=== PATIENT | male | born 1985 | race Caucasian/White ===

== ENCOUNTER 2022-06-19 22:14 | Emergency (ER) | payer MEDICAID, OTHER ==
[~2022-06-19] VITALS: Ht 175.3 cm; Wt 77.8 kg
[2022-06-20] MEDS ORDERED: QUET50TA4 PO (03:57)
[2022-06-20] MEDS ORDERED: DOXA1TAB40 PO (03:57)
[2022-06-20] MEDS ORDERED: BUPR1FIL PO (03:57)
[2022-06-20] MEDS ORDERED: TRAZ1TAB14 PO (03:57)
[2022-06-20] MEDS ORDERED: NICO1DIS11 TD (03:57)
[2022-06-20] MEDS ORDERED: CITA20TA6 PO (03:57)
[2022-06-20 04:24] LABS: HEMATOCRIT 45.3 % (42.0-52.0); HEMOGLOBIN 15.6 g/dl (13.5-17.5); MEAN CORPUSCULAR HEMOGLOBIN 28.2 pg (27.0-33.0); MEAN CORPUSCULAR HGB CONC 34.4 g/dl (32.0-36.5); MEAN CORPUSCULAR VOLUME 81.9 fl (80.0-96.0); PLATELET COUNT, AUTOMATED 256 10^3/uL (150-450); RED BLOOD COUNT 5.53 10^6/uL (4.30-6.10); WHITE BLOOD COUNT 8.9 10^3/uL (4.0-10.0)
[2022-06-20 04:47] LABS: ETHYL ALCOHOL (ETHANOL) < 0.003 % (0.000-0.010)
[2022-06-20 04:48] LABS: ACETAMINOPHEN LEVEL < 2.0 UG/ML (10.0-20.0)
[2022-06-20 04:49] LABS: SALICYLATE LEVEL < 3.0 MG/DL (<30)
[2022-06-20 04:52] LABS: ALBUMIN 4.6 G/DL (3.2-5.2); ALKALINE PHOSPHATASE 77 U/L (46-116); ALT/SGPT 63 U/L (7.0-40); AST/SGOT 40 U/L (<34); BILIRUBIN,DIRECT 0.3 MG/DL (<0.4); BILIRUBIN,TOTAL 0.8 MG/DL (0.3-1.2); BLOOD UREA NITROGEN 16 MG/DL (9-23); CALCIUM LEVEL 9.9 MG/DL (8.5-10.1); CARBON DIOXIDE LEVEL 25 MMOL/L (20-31); CHLORIDE LEVEL 103 MMOL/L (98-107); GLOMERULAR FILTRATION RATE > 60.0 (>60); GLUCOSE, FASTING 100 MG/DL (60-100); POTASSIUM SERUM 3.9 MMOL/L (3.5-5.1); SODIUM LEVEL 137 MMOL/L (136-145); THYROID STIMULATING HORMONE 1.897 uIU/ML (0.55-4.78); TOTAL PROTEIN 7.1 G/DL (5.7-8.2)
[2022-06-20] MEDS ORDERED: ACETAMINOPHEN TAB 650MG DOSE (2X325MG) PO ONE (05:30)
[2022-06-20 06:49] LABS: RSV AMPLIFICATION NEGATIVE (NEGATIVE)
[2022-06-20 08:49] LABS: BARBITURATES URINE NEGATIVE (NEGATIVE); BENZODIAZEPINES URINE NEGATIVE (NEGATIVE); COCAINE METABOLITE URINE NEGATIVE (NEGATIVE); METHADONE URINE NEGATIVE (NEGATIVE); OPIATES URINE NEGATIVE (NEGATIVE)
[2022-06-20 08:50] LABS: CANNABINOIDS URINE NEGATIVE (NEGATIVE); PHENCYCLIDINE URINE NEGATIVE (NEGATIVE)
[2022-06-20 08:58] LABS: AMPHETAMINES LEVEL URINE POSITIVE (NEGATIVE)
[2022-06-20 09:29] VITALS: BP 124/78
== END 2022-06-20 09:34 | disposition home or self-care (01) ==
LOC: M ED 22:14 → EDBD 22:14 → M ED 06-20 09:34
DX: F19.10 Other psychoactive substance abuse, uncomplicated (principal); F17.200 Nicotine dependence, unspecified, uncomplicated; Z79.811 Long term (current) use of aromatase inhibitors; Z79.83 Long term (current) use of bisphosphonates

== ENCOUNTER → 2022-07-04 | Outpatient (CLI) | payer OTHER ==
[~2022-07-04] MED LIST: BUPR1FIL PO; CITA20TA6 PO; DOXA1TAB40 PO; NICO1DIS11 TD; QUET50TA4 PO; TRAZ1TAB14 PO
[2022-07-04 13:59] LABS: APPEARANCE, URINE CLEAR (CLEAR); BACTERIA, URINE AUTO NEGATIVE (NEGATIVE); BILIRUBIN, URINE AUTO NEGATIVE (NEGATIVE); BLOOD, URINE BLOOD NEGATIVE (NEGATIVE); COLOR, URINE YELLOW (YELLOW); GLUCOSE, URINE (UA) AUTO NEGATIVE (NEGATIVE); KETONE, URINE AUTO TRACE mg/dL (NEGATIVE); LEUKOCYTE ESTERASE, URINE AUTO NEGATIVE (NEGATIVE); MUCUS, URINE SMALL (NEGATIVE); NITRITE, URINE AUTO NEGATIVE (NEGATIVE); PROTEIN, URINE AUTO NEGATIVE (NEGATIVE); RBC, URINE AUTO 1 /HPF (0-3); SPECIFIC GRAVITY URINE AUTO 1.023 (1.002-1.035); SQUAMOUS EPITHELIAL CELL UR AU 0 /HPF (0-6); UROBILINOGEN, URINE AUTO 0.2 mg/dL (0.0-2.0); WBC, URINE AUTO 0 /HPF (0-3)
[2022-07-04 14:01] LABS: BASO % 0.5 % (0.0-1.0); EOS # 0.1 10^3/uL (0.0-0.5); EOS % 1.5 % (0.0-3.0); HEMATOCRIT 41.3 % (42.0-52.0); HEMOGLOBIN 14.5 g/dl (13.5-17.5); LYMPH # 2.1 10^3/uL (1.5-5.0); LYMPH % 32.8 % (24.0-44.0); MEAN CORPUSCULAR HEMOGLOBIN 29.1 pg (27.0-33.0); MEAN CORPUSCULAR HGB CONC 35.1 g/dl (32.0-36.5); MEAN CORPUSCULAR VOLUME 82.9 fl (80.0-96.0); MONO # 0.4 10^3/uL (0.0-0.8); MONO % 6.6 % (2.0-8.0); NEUTROPHILS # 3.8 10^3/uL (1.5-8.5); NEUTROPHILS % 58.3 % (36.0-66.0); PLATELET COUNT, AUTOMATED 208 10^3/uL (150-450); RED BLOOD COUNT 4.98 10^6/uL (4.30-6.10); WHITE BLOOD COUNT 6.5 10^3/uL (4.0-10.0)
[2022-07-04 14:29] LABS: ALBUMIN 4.2 G/DL (3.2-5.2); BLOOD UREA NITROGEN 13 MG/DL (9-23); CALCIUM LEVEL 9.1 MG/DL (8.5-10.1); CARBON DIOXIDE LEVEL 27 MMOL/L (20-31); CHLORIDE LEVEL 104 MMOL/L (98-107); CREATININE FOR GFR 1.06 MG/DL (0.70-1.30); GLOMERULAR FILTRATION RATE > 60.0 (>60); GLUCOSE, FASTING 85 MG/DL (60-100); PHOSPHORUS LEVEL 3.4 MG/DL (2.5-4.9); POTASSIUM SERUM 4.2 MMOL/L (3.5-5.1); SODIUM LEVEL 138 MMOL/L (136-145)
[2022-07-04 14:43] LABS: HEPATITIS B SURFACE ANTIGEN NEGATIVE (NEGATIVE)
[2022-07-04 15:03] LABS: HEPATITIS B CORE ANTIBODY IGM NEGATIVE (NEGATIVE)
[2022-07-04 15:50] LABS: HEPATITIS C VIRUS ABY INDEX > 11.0 INDEX (<0.8)
== END ==
LOC: M LAB 12:55
PROVIDERS: ATTEND Physician Assistant
DX: Z02.2 Encounter for examination for admission to residential institution (principal)

== ENCOUNTER 2022-08-15 18:33 | Emergency (ER) | payer OTHER ==
[~2022-08-15] VITALS: Ht 177.8 cm; Wt 83.6 kg
[2022-08-15 22:02] LABS: BASO % 0.5 % (0.0-1.0); EOS # 0.2 10^3/uL (0.0-0.5); EOS % 2.7 % (0.0-3.0); HEMATOCRIT 39.6 % (42.0-52.0); HEMOGLOBIN 13.8 g/dl (13.5-17.5); LYMPH % 38.7 % (24.0-44.0); MEAN CORPUSCULAR HEMOGLOBIN 28.9 pg (27.0-33.0); MEAN CORPUSCULAR HGB CONC 34.8 g/dl (32.0-36.5); MONO # 0.6 10^3/uL (0.0-0.8); MONO % 8.1 % (2.0-8.0); NEUTROPHILS # 3.8 10^3/uL (1.5-8.5); NEUTROPHILS % 49.7 % (36.0-66.0); PLATELET COUNT, AUTOMATED 191 10^3/uL (150-450); RED BLOOD COUNT 4.77 10^6/uL (4.30-6.10); WHITE BLOOD COUNT 7.7 10^3/uL (4.0-10.0)
[2022-08-15 22:29] LABS: ALKALINE PHOSPHATASE 67 U/L (46-116); ALT/SGPT 45 U/L (7.0-40); AST/SGOT 31 U/L (<34); BILIRUBIN,DIRECT < 0.1 MG/DL (<0.4); BILIRUBIN,TOTAL 0.2 MG/DL (0.3-1.2); BLOOD UREA NITROGEN 15 MG/DL (9-23); CALCIUM LEVEL 8.8 MG/DL (8.5-10.1); CARBON DIOXIDE LEVEL 28 MMOL/L (20-31); CHLORIDE LEVEL 107 MMOL/L (98-107); CREATININE FOR GFR 1.03 MG/DL (0.70-1.30); GLOMERULAR FILTRATION RATE > 60.0 (>60); GLUCOSE, FASTING 93 MG/DL (60-100); POTASSIUM SERUM 3.9 MMOL/L (3.5-5.1); SODIUM LEVEL 141 MMOL/L (136-145); TOTAL PROTEIN 6.5 G/DL (5.7-8.2)
[2022-08-15 23:03] LABS: AMPHETAMINES LEVEL URINE NEGATIVE (NEGATIVE); BARBITURATES URINE NEGATIVE (NEGATIVE); BENZODIAZEPINES URINE NEGATIVE (NEGATIVE)
[2022-08-15 23:04] LABS: CANNABINOIDS URINE NEGATIVE (NEGATIVE); COCAINE METABOLITE URINE NEGATIVE (NEGATIVE); METHADONE URINE NEGATIVE (NEGATIVE); OPIATES URINE NEGATIVE (NEGATIVE); PHENCYCLIDINE URINE NEGATIVE (NEGATIVE)
[2022-08-16 00:39] VITALS: BP 136/84
== END 2022-08-16 00:41 | disposition short-term general hospital (02) ==
LOC: M ED 18:33
DX: R41.3 Other amnesia (principal); F19.10 Other psychoactive substance abuse, uncomplicated; Z79.899 Other long term (current) drug therapy

== ENCOUNTER 2022-09-16 16:11 | Emergency (ER) | payer OTHER ==
[~2022-09-16] VITALS: Ht 175.3 cm; Wt 80.0 kg
[2022-09-16 16:14] VITALS: BP 151/87
[2022-09-16 17:15] LABS: HEMOGLOBIN 15.5 g/dl (13.5-17.5); MEAN CORPUSCULAR HEMOGLOBIN 28.8 pg (27.0-33.0); MEAN CORPUSCULAR HGB CONC 34.4 g/dl (32.0-36.5); MEAN CORPUSCULAR VOLUME 83.5 fl (80.0-96.0); PLATELET COUNT, AUTOMATED 230 10^3/uL (150-450); RED BLOOD COUNT 5.39 10^6/uL (4.30-6.10); WHITE BLOOD COUNT 13.3 10^3/uL (4.0-10.0)
[2022-09-16 17:35] LABS: ETHYL ALCOHOL (ETHANOL) < 0.003 % (0.000-0.010)
[2022-09-16 17:36] LABS: ACETAMINOPHEN LEVEL < 2.0 UG/ML (10.0-20.0); BLOOD UREA NITROGEN 13 MG/DL (9-23); CALCIUM LEVEL 9.8 MG/DL (8.5-10.1); CARBON DIOXIDE LEVEL 28 MMOL/L (20-31); CHLORIDE LEVEL 104 MMOL/L (98-107); CREATININE FOR GFR 1.02 MG/DL (0.70-1.30); GLOMERULAR FILTRATION RATE > 60.0 (>60); GLUCOSE, FASTING 111 MG/DL (60-100); POTASSIUM SERUM 3.7 MMOL/L (3.5-5.1); SALICYLATE LEVEL < 3.0 MG/DL (<30); SODIUM LEVEL 137 MMOL/L (136-145)
[2022-09-16 18:24] LABS: AMPHETAMINES LEVEL URINE NEGATIVE (NEGATIVE); BARBITURATES URINE NEGATIVE (NEGATIVE); BENZODIAZEPINES URINE NEGATIVE (NEGATIVE); CANNABINOIDS URINE NEGATIVE (NEGATIVE); COCAINE METABOLITE URINE NEGATIVE (NEGATIVE); METHADONE URINE NEGATIVE (NEGATIVE); OPIATES URINE NEGATIVE (NEGATIVE); PHENCYCLIDINE URINE NEGATIVE (NEGATIVE)
[2022-09-16] MEDS ORDERED: LORazepam 2 MG TAB PO STA (18:26)
[2022-09-16] MEDS ORDERED: OLANZapine ORAL DISINTEGRATING TAB 5MG PO ONE (18:30)
== END 2022-09-16 20:25 | disposition home or self-care (01) ==
LOC: M ED 16:11
DX: F43.0 Acute stress reaction (principal); F19.10 Other psychoactive substance abuse, uncomplicated; Z79.899 Other long term (current) drug therapy; Z91.048 Other nonmedicinal substance allergy status

== ENCOUNTER 2022-11-05 13:11 | Emergency (ER) | payer OTHER ==
[~2022-11-05] VITALS: Ht 177.8 cm; Wt 8.0 kg
[2022-11-05 13:48] LABS: HEMATOCRIT 43.1 % (42.0-52.0); HEMOGLOBIN 14.9 g/dl (13.5-17.5); MEAN CORPUSCULAR HEMOGLOBIN 28.6 pg (27.0-33.0); MEAN CORPUSCULAR HGB CONC 34.6 g/dl (32.0-36.5); MEAN CORPUSCULAR VOLUME 82.7 fl (80.0-96.0); PLATELET COUNT, AUTOMATED 220 10^3/uL (150-450); RED BLOOD COUNT 5.21 10^6/uL (4.30-6.10)
[2022-11-05 14:10] LABS: AMPHETAMINES LEVEL URINE NEGATIVE (NEGATIVE); BARBITURATES URINE NEGATIVE (NEGATIVE)
[2022-11-05 14:11] LABS: BENZODIAZEPINES URINE NEGATIVE (NEGATIVE); CANNABINOIDS URINE NEGATIVE (NEGATIVE); COCAINE METABOLITE URINE NEGATIVE (NEGATIVE); METHADONE URINE NEGATIVE (NEGATIVE); OPIATES URINE NEGATIVE (NEGATIVE); PHENCYCLIDINE URINE NEGATIVE (NEGATIVE)
[2022-11-05 14:12] LABS: ETHYL ALCOHOL (ETHANOL) < 0.003 % (0.000-0.010)
[2022-11-05 14:13] LABS: ACETAMINOPHEN LEVEL < 2.0 UG/ML (10.0-20.0)
[2022-11-05 14:14] LABS: ALBUMIN 4.5 G/DL (3.2-5.2); ALKALINE PHOSPHATASE 77 U/L (46-116); ALT/SGPT 42 U/L (7.0-40); AST/SGOT 15 U/L (<34); BILIRUBIN,DIRECT 0.2 MG/DL (<0.4); BILIRUBIN,TOTAL 0.6 MG/DL (0.3-1.2); BLOOD UREA NITROGEN 18 MG/DL (9-23); CALCIUM LEVEL 9.3 MG/DL (8.5-10.1); CARBON DIOXIDE LEVEL 27 MMOL/L (20-31); CHLORIDE LEVEL 100 MMOL/L (98-107); CREATININE FOR GFR 1.07 MG/DL (0.70-1.30); GLOMERULAR FILTRATION RATE > 60.0 (>60); GLUCOSE, FASTING 94 MG/DL (60-100); POTASSIUM SERUM 4.1 MMOL/L (3.5-5.1); SALICYLATE LEVEL < 3.0 MG/DL (<30); SODIUM LEVEL 135 MMOL/L (136-145); TOTAL PROTEIN 7.1 G/DL (5.7-8.2)
[2022-11-05 14:16] LABS: THYROID STIMULATING HORMONE 0.419 uIU/ML (0.55-4.78)
[2022-11-05 19:58] VITALS: BP 124/84; TEMP 98.4; O2SAT 98
== END 2022-11-05 20:12 | disposition home or self-care (01) ==
LOC: M ED 13:11
DX: R44.0 Auditory hallucinations (principal); F17.200 Nicotine dependence, unspecified, uncomplicated; Z79.899 Other long term (current) drug therapy

== ENCOUNTER 2022-11-14 22:08 | Inpatient (IN) | payer OTHER ==
[~2022-11-14] VITALS: Ht 177.8 cm; Wt 79.5 kg
[2022-11-14 23:02] LABS: HEMATOCRIT 39.3 % (42.0-52.0); HEMOGLOBIN 13.5 g/dl (13.5-17.5); MEAN CORPUSCULAR HEMOGLOBIN 28.2 pg (27.0-33.0); MEAN CORPUSCULAR HGB CONC 34.4 g/dl (32.0-36.5); PLATELET COUNT, AUTOMATED 232 10^3/uL (150-450); RED BLOOD COUNT 4.79 10^6/uL (4.30-6.10); WHITE BLOOD COUNT 11.9 10^3/uL (4.0-10.0)
[2022-11-14 23:24] LABS: ETHYL ALCOHOL (ETHANOL) < 0.003 % (0.000-0.010)
[2022-11-14 23:26] LABS: ACETAMINOPHEN LEVEL < 2.0 UG/ML (10.0-20.0); ALBUMIN 4.4 G/DL (3.2-5.2); ALKALINE PHOSPHATASE 65 U/L (46-116); ALT/SGPT 44 U/L (7.0-40); AST/SGOT 35 U/L (<34); BILIRUBIN,DIRECT 0.2 MG/DL (<0.4); BILIRUBIN,TOTAL 0.6 MG/DL (0.3-1.2); BLOOD UREA NITROGEN 15 MG/DL (9-23); CALCIUM LEVEL 9.4 MG/DL (8.5-10.1); CARBON DIOXIDE LEVEL 25 MMOL/L (20-31); CHLORIDE LEVEL 103 MMOL/L (98-107); GLOMERULAR FILTRATION RATE > 60.0 (>60); GLUCOSE, FASTING 86 MG/DL (60-100); POTASSIUM SERUM 3.8 MMOL/L (3.5-5.1); SALICYLATE LEVEL < 3.0 MG/DL (<30); SODIUM LEVEL 138 MMOL/L (136-145); TOTAL PROTEIN 6.7 G/DL (5.7-8.2)
[2022-11-14 23:29] LABS: THYROID STIMULATING HORMONE 2.108 uIU/ML (0.55-4.78)
[2022-11-15 01:04] LABS: AMPHETAMINES LEVEL URINE NEGATIVE (NEGATIVE); COCAINE METABOLITE URINE NEGATIVE (NEGATIVE)
[2022-11-15 01:05] LABS: BENZODIAZEPINES URINE NEGATIVE (NEGATIVE); CANNABINOIDS URINE NEGATIVE (NEGATIVE); METHADONE URINE NEGATIVE (NEGATIVE); OPIATES URINE NEGATIVE (NEGATIVE); PHENCYCLIDINE URINE NEGATIVE (NEGATIVE)
[2022-11-15 01:13] LABS: BARBITURATES URINE POSITIVE (NEGATIVE)
[2022-11-15] MEDS ORDERED: CELE10TA PO (06:16)
[2022-11-15] MEDS ORDERED: DOXE50CA PO (06:16)
[2022-11-15] MEDS ORDERED: PRIM50TA6 PO (06:16)
[2022-11-15] MEDS ORDERED: TRAZ1TAB10 PO (06:16)
[2022-11-15] MEDS ORDERED: MED REC IN PROGRESS XX SCH (06:20)
[2022-11-15] MEDS ORDERED: RISP-11 PO (06:56)
[2022-11-15] MEDS ORDERED: TRAZ1TAB14 PO (06:56)
[2022-11-15] MEDS ORDERED: CITA30CA PO (06:56)
[2022-11-15] MEDS ORDERED: HOME MED LIST COMPLETE! XX SCH (07:00)
[2022-11-15] MEDS ORDERED: IBUPROFEN 400MG TAB PO PRN (13:20)
[2022-11-15] MEDS ORDERED: diphenhydrAMINE 25MG CAP PO PRN (13:20)
[2022-11-15] MEDS ORDERED: traZODone 50 MG TAB PO PRN (13:20)
[2022-11-15] MEDS ORDERED: MOM 30ML SUSPENSION UDC PO PRN (13:20)
[2022-11-15] MEDS ORDERED: MAALOX 30 ML SUSP *UDC PO PRN (13:20)
[2022-11-15] MEDS ORDERED: ACETAMINOPHEN TAB 650MG DOSE (2X325MG) PO PRN (13:20)
[2022-11-15] MEDS: CitaloPRAM (CeleXA) 10 MG TABLET PO SCH (13:57)
[2022-11-15] MEDS: NICOTINE 21MG/24HR 1 EA TRANSDERMAL TD SCH (13:57)
[2022-11-15] MEDS: risperiDONE 2 MG TAB PO SCH (20:10)
[2022-11-15] MEDS: traZODone 50 MG TAB PO SCH (20:10)
[2022-11-15] MEDS: PRIMIDONE 50MG TAB PO SCH (21:00)
[2022-11-16] MEDS: NICOTINE 21MG/24HR 1 EA TRANSDERMAL TD SCH (08:55)
[2022-11-16] MEDS: PRIMIDONE 50MG TAB PO SCH ×2 (08:55→21:55)
[2022-11-16] MEDS: CitaloPRAM (CeleXA) 10 MG TABLET PO SCH (08:55)
[2022-11-16] MEDS ORDERED: traZODone 50 MG TAB PO PRN (12:05)
[2022-11-16] MEDS ORDERED: diphenhydrAMINE 25MG CAP PO PRN (12:05)
[2022-11-16] MEDS ORDERED: LORazepam 2 MG TAB PO PRN (12:05)
[2022-11-16] MEDS ORDERED: MAALOX 30 ML SUSP *UDC PO PRN (12:05)
[2022-11-16] MEDS ORDERED: IBUPROFEN 400MG TAB PO PRN (12:05)
[2022-11-16] MEDS ORDERED: MOM 30ML SUSPENSION UDC PO PRN (12:05)
[2022-11-16 13:46] VITALS: BP 127/77; TEMP 97.6; O2SAT 98
[2022-11-16 14:00] VITALS: BP 127/77
[2022-11-16] MEDS: ACETAMINOPHEN TAB 650MG DOSE (2X325MG) PO PRN (14:31)
[2022-11-16] MEDS: MULTIVITAMINS/MINERALS THERAP 1 TAB PO SCH (14:31)
[2022-11-16] MEDS: FOLIC ACID 1MG TAB PO SCH (14:31)
[2022-11-16] MEDS: THIAMINE 100 MG TAB PO SCH ×2 (14:31→20:16)
[2022-11-16] MEDS: risperiDONE 2 MG TAB PO SCH (20:16)
[2022-11-16] MEDS: traZODone 50 MG TAB PO SCH (20:16)
[2022-11-16 21:58] VITALS: BP 139/85
[2022-11-17 06:00] VITALS: BP 140/90
[2022-11-17 06:44] VITALS: BP 140/90; TEMP 97.2; O2SAT 97
[2022-11-17] MEDS: MULTIVITAMINS/MINERALS THERAP 1 TAB PO SCH (07:53)
[2022-11-17] MEDS: FOLIC ACID 1MG TAB PO SCH (07:53)
[2022-11-17] MEDS: CitaloPRAM (CeleXA) 10 MG TABLET PO SCH (07:53)
[2022-11-17] MEDS: THIAMINE 100 MG TAB PO SCH ×2 (07:53→19:58)
[2022-11-17] MEDS: PRIMIDONE 50MG TAB PO SCH ×2 (07:53→19:58)
[2022-11-17] MEDS: NICOTINE 21MG/24HR 1 EA TRANSDERMAL TD SCH (07:54)
[2022-11-17] MEDS ORDERED: NICOTINE 21MG/24HR 1 EA TRANSDERMAL TD SCH (09:00)
[2022-11-17] MEDS ORDERED: BUPR1FIL SL (13:50)
[2022-11-17] MEDS: BUPRENORPHINE/NALOXONE 8-2MG SUBLINGUAL TABLET(SUBOXONE) SL SCH ×2 (13:55→19:58)
[2022-11-17 16:57] VITALS: BP 126/72; TEMP 98.8; O2SAT 98
[2022-11-17] MEDS: risperiDONE 2 MG TAB PO SCH (19:58)
[2022-11-17] MEDS: traZODone 50 MG TAB PO SCH (19:59)
[2022-11-17 22:30] VITALS: BP 126/72
[2022-11-18 06:32] VITALS: BP 139/68; TEMP 97.2; O2SAT 96
[2022-11-18 06:45] LABS: HEMOGLOBIN A1c 5.2 % (4.0-6.0)
[2022-11-18 07:13] LABS: CHOLESTEROL RISK RATIO 2.85 (<5); HDL CHOLESTEROL 54.6 MG/DL (>40); LDL CHOLESTEROL 81.4 MG/DL (<100); NON-HDL-C 101.4 MG/DL
[2022-11-18] MEDS: MULTIVITAMINS/MINERALS THERAP 1 TAB PO SCH (07:42)
[2022-11-18] MEDS: PRIMIDONE 50MG TAB PO SCH ×2 (07:42→20:19)
[2022-11-18] MEDS: FOLIC ACID 1MG TAB PO SCH (07:43)
[2022-11-18] MEDS: CitaloPRAM (CeleXA) 10 MG TABLET PO SCH (07:43)
[2022-11-18] MEDS: THIAMINE 100 MG TAB PO SCH ×2 (07:43→20:19)
[2022-11-18] MEDS: NICOTINE 21MG/24HR 1 EA TRANSDERMAL TD SCH (07:44)
[2022-11-18] MEDS: BUPRENORPHINE/NALOXONE 8-2MG SUBLINGUAL TABLET(SUBOXONE) SL SCH ×2 (08:04→20:19)
[2022-11-18] MEDS: risperiDONE 2 MG TAB PO SCH (20:19)
[2022-11-18] MEDS: traZODone 50 MG TAB PO SCH (21:07)
[2022-11-18 23:00] VITALS: BP 139/68
[2022-11-19 06:30] VITALS: BP 144/69; TEMP 98.1; O2SAT 99
[2022-11-19] MEDS: NICOTINE 21MG/24HR 1 EA TRANSDERMAL TD SCH (08:26)
[2022-11-19] MEDS: PRIMIDONE 50MG TAB PO SCH ×2 (08:27→20:10)
[2022-11-19] MEDS: FOLIC ACID 1MG TAB PO SCH (08:27)
[2022-11-19] MEDS: CitaloPRAM (CeleXA) 10 MG TABLET PO SCH (08:27)
[2022-11-19] MEDS: BUPRENORPHINE/NALOXONE 8-2MG SUBLINGUAL TABLET(SUBOXONE) SL SCH ×2 (08:27→20:10)
[2022-11-19] MEDS: MULTIVITAMINS/MINERALS THERAP 1 TAB PO SCH (08:27)
[2022-11-19 17:36] VITALS: BP 132/80; TEMP 97.4; O2SAT 98
[2022-11-19] MEDS: risperiDONE 2 MG TAB PO SCH (20:11)
[2022-11-19] MEDS: ACETAMINOPHEN TAB 650MG DOSE (2X325MG) PO PRN (20:11)
[2022-11-19] MEDS: traZODone 50 MG TAB PO SCH (20:11)
[2022-11-20 06:04] VITALS: BP 138/78; TEMP 98.3; O2SAT 99
[2022-11-20] MEDS: PRIMIDONE 50MG TAB PO SCH ×2 (08:02→20:16)
[2022-11-20] MEDS: FOLIC ACID 1MG TAB PO SCH (08:02)
[2022-11-20] MEDS: CitaloPRAM (CeleXA) 10 MG TABLET PO SCH (08:02)
[2022-11-20] MEDS: MULTIVITAMINS/MINERALS THERAP 1 TAB PO SCH (08:02)
[2022-11-20] MEDS: BUPRENORPHINE/NALOXONE 8-2MG SUBLINGUAL TABLET(SUBOXONE) SL SCH ×2 (08:02→20:16)
[2022-11-20] MEDS: NICOTINE 21MG/24HR 1 EA TRANSDERMAL TD SCH (08:03)
[2022-11-20] MEDS ORDERED: TRAZ1TAB14 PO (18:05)
[2022-11-20] MEDS ORDERED: RISP-11 PO (18:05)
[2022-11-20] MEDS ORDERED: PRIM50TA6 PO (18:05)
[2022-11-20] MEDS ORDERED: CITA30CA PO (18:05)
[2022-11-20 18:27] VITALS: BP 132/78; TEMP 97.2; O2SAT 95
[2022-11-20] MEDS: traZODone 50 MG TAB PO SCH (20:16)
[2022-11-20] MEDS: risperiDONE 2 MG TAB PO SCH (20:16)
[2022-11-21 05:53] VITALS: BP 117/66; TEMP 97; O2SAT 97
[2022-11-21] MEDS: MULTIVITAMINS/MINERALS THERAP 1 TAB PO SCH (08:32)
[2022-11-21] MEDS: FOLIC ACID 1MG TAB PO SCH (08:32)
[2022-11-21] MEDS: BUPRENORPHINE/NALOXONE 8-2MG SUBLINGUAL TABLET(SUBOXONE) SL SCH (08:32)
[2022-11-21] MEDS: PRIMIDONE 50MG TAB PO SCH (08:32)
[2022-11-21] MEDS: CitaloPRAM (CeleXA) 10 MG TABLET PO SCH (08:33)
[2022-11-21] MEDS: NICOTINE 21MG/24HR 1 EA TRANSDERMAL TD SCH (09:00)
== END 2022-11-21 10:55 | disposition home or self-care (01) | DRG 754 ==
LOC: M ED 22:08 → M ED INP 11-15 13:18 → UNDOADMIN 11-15 13:18 → M ED INP 11-16 12:05 → EDBEDREQDT 11-16 12:20 → EDBEDREQTM 11-16 12:20 → M PSY 11-16 13:52
PROVIDERS: ADMIT Student in an Organized Health Care Education/Training Program; ATTEND Student in an Organized Health Care Education/Training Program
DX: F32.A Depression, unspecified (principal); I10 Essential (primary) hypertension; F11.90 Opioid use, unspecified, uncomplicated; F29 Unspecified psychosis not due to a substance or known physiological condition; F17.210 Nicotine dependence, cigarettes, uncomplicated; M54.9 Dorsalgia, unspecified; N32.81 Overactive bladder; Z79.899 Other long term (current) drug therapy; Z20.822 Contact with and (suspected) exposure to COVID-19; Z91.048 Other nonmedicinal substance allergy status; Z56.0 Unemployment, unspecified

== ENCOUNTER 2022-12-11 06:53 | Emergency (ER) | payer OTHER ==
[~2022-12-11] VITALS: Ht 177.8 cm; Wt 72.0 kg
[2022-12-11 06:53] VITALS: BP 117/91; TEMP 99.6; O2SAT 96
[~2022-12-11 06:53] MED LIST changes: +BUPR1FIL SL; +CELE10TA PO; +CITA30CA PO; +DOXE50CA PO; +PRIM50TA6 PO; +RISP-11 PO; +TRAZ1TAB10 PO
== END 2022-12-11 10:00 | disposition left against medical advice (07) ==
LOC: M ED 06:53
DX: Z53.21 Procedure and treatment not carried out due to patient leaving prior to being seen by health care provider (principal)

== ENCOUNTER 2022-12-13 06:37 | Emergency (ER) | payer OTHER ==
[~2022-12-13] VITALS: Ht 177.8 cm; Wt 77.3 kg
[2022-12-13] MEDS ORDERED: NS 1,000 ML IV ONE (08:00)
[2022-12-13] MEDS ORDERED: KETOROLAC 30 MG/ML 1ML VIAL IV ONE (08:00)
[2022-12-13] MEDS ORDERED: ISOVUE-370 76% 100ML VIAL As Ordered ONE (08:45)
[2022-12-13 08:54] LABS: BASO % 0.2 % (0.0-1.0); EOS % 0.2 % (0.0-3.0); HEMATOCRIT 43.9 % (42.0-52.0); HEMOGLOBIN 14.9 g/dl (13.5-17.5); LYMPH % 11.6 % (24.0-44.0); MEAN CORPUSCULAR HEMOGLOBIN 28.2 pg (27.0-33.0); MEAN CORPUSCULAR HGB CONC 33.9 g/dl (32.0-36.5); MONO # 0.6 10^3/uL (0.0-0.8); MONO % 7.3 % (2.0-8.0); NEUTROPHILS # 6.8 10^3/uL (1.5-8.5); NEUTROPHILS % 80.2 % (36.0-66.0); PLATELET COUNT, AUTOMATED 212 10^3/uL (150-450); RED BLOOD COUNT 5.29 10^6/uL (4.30-6.10); WHITE BLOOD COUNT 8.5 10^3/uL (4.0-10.0)
[2022-12-13 09:05] LABS: ERYTHROCYTE SEDIMENTATION RATE 32 mm/hr (0-15)
[2022-12-13] MEDS ORDERED: cefTRIAXone SOD 1 GM in D5W MINI-BAG PLUS 50 ML IV ONE (09:55)
[2022-12-13] MEDS ORDERED: NORCO, ANEXSIA 5/325MG TABLET (HYDROcodone/ACETAMINOPHEN) PO ONE (09:55)
[2022-12-13] MEDS ORDERED: AMOX875T2 PO (10:10)
[2022-12-13] MEDS ORDERED: NAPR-837 PO (10:10)
[2022-12-13] MEDS ORDERED: HYDR-3713 PO (10:10)
[2022-12-13] MEDS ORDERED: ANBE20GE TOP (10:10)
[2022-12-13 10:25] VITALS: BP 119/74; TEMP 97.2; O2SAT 100
== END 2022-12-13 11:14 | disposition home or self-care (01) ==
LOC: M ED 06:37
DX: K03.81 Cracked tooth (principal); K04.7 Periapical abscess without sinus; L03.211 Cellulitis of face
CPT/HCPCS: 70491; 80047; 83605; 85025; 85652; 86140; 87040; 96374; 96375; 99283; J0696; J1885; Q9967